=== PATIENT | female | born 1970 | race Caucasian/White ===

== ENCOUNTER 2020-08-23 13:47 | Emergency (ER) | payer BC, OTHER ==
[2020-08-23 14:10] VITALS: BP 145/80; PULSE 77
--- NOTE | 2020-08-23 14:25 | EDM.PDOC ---
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 PT STATES LEFT ANTERIOR RIB CAGE IS TENDER TO TOUCH. PT STATES SHE HAS BEEN TAKING IBUPROFEN FOR PAIN RELIEF BUT LAST NIGHT AFTER WORK SHE SNEEZED AND PAIN BECAME WORSE. PT DENIES COUGH/CONGESTION, NO FEVER/CHILLS, NO SHORTNESS OF BREATH. PT REPORTS TOBACCO USE HISTORY BUT DENIES RESPIRATORY COMPLAINTS. Onset Date: 08/22/20 Duration: Day(s): (1) Location: Reports: Chest Quality: Reports: Ache Severity: Moderate Improves with: Reports: Rest Worsens with: Reports: Movement Context: Reports: Activity Associated Symptoms: Reports: Chest Pain. Denies: Cough, cough w sputum, Diaphoresis, Fever/Chills, Nausea/Vomiting, Shortness of Breath left ribs Pain Score (Numeric/FACES): 5 - Related Data Allergies Allergy/AdvReac Type Severity Reaction Status Date / Time oxycodone Allergy Hives Verified 08/23/20 13:54 Home Meds: Home Meds Ibuprofen [Advil] 400 mg PO Q6HR PRN 01/02/20 [History] traMADol [Ultram] 50 mg PO Q4H PRN #15 tab 08/23/20 [Rx] Past Medical History [employer]OR [employer] History: Reports: Dysfunctional Uterine Bleeding, Musculoskeletal History: Reports: RA Other Musculoskeletal History: States she has two bone spurs in neck region - Past Surgical History GI Surgical History: Reports: Appendectomy, Hernia Repair/Other, Other (See Below) Other GI Surgeries/Procedures: x2 hernia repair Female Surgical History: Reports: Section, Hysterectomy Social & Family History - Family History Family Medical History: Noncontributory - Tobacco Use Smoking Status *Q: Current Every Day Smoker Years of Tobacco use: 30 Packs/Tins Daily: 1 - Recreational Drug Use Recreational Drug Use: No - Living Situation & Occupation Living situation: Reports: Occupation: Employed ED ROS GENERAL - Review of Systems Review Of Systems: See Below Constitutional: Reports: No Symptoms HEENT: Reports: No Symptoms Respiratory: Reports: Pleuritic Chest Pain. Denies: Shortness of Breath, Wheezing, Cough, Hemoptysis Cardiovascular: Reports: Chest Pain Endocrine: Reports: No Symptoms GI/Abdominal: Reports: No Symptoms : Reports: No Symptoms Musculoskeletal: Reports: No Symptoms Skin: Reports: No Symptoms Neurological: Reports: No Symptoms Psychiatric: Reports: No Symptoms Hematologic/Lymphatic: Reports: No Symptoms Immunologic: Reports: No Symptoms ED EXAM, GENERAL - Physical Exam Exam: See Below Exam Limited By: No Limitations General Appearance: Alert, WD/WN, No Apparent Distress Head: Atraumatic, Normocephalic Neck: Normal Inspection, Supple, Non-Tender, Full Range of Motion Respiratory/Chest: No Respiratory Distress, Lungs Clear, Normal Breath Sounds, No Accessory Muscle Use. No: Rales, Rhonchi, Wheezing, Retractions, Splinting Cardiovascular: Normal Peripheral Pulses, Regular Rate, Rhythm, No Edema, No Gallop, No JVD, No Murmur, No Rub GI/Abdominal: Normal Bowel Sounds, Soft, Non-Tender, No Organomegaly, No Distention, No Abnormal Bruit, No Mass Back Exam: Normal Inspection, Full Range of Motion, NT Extremities: Normal Inspection, Normal Range of Motion, Non-Tender, Normal Capillary Refill, No Pedal Edema Neurological: Alert, Oriented, CN II-XII Intact, Normal Cognition, Normal Gait, Normal Reflexes, No Motor/Sensory Deficits Psychiatric: Normal Affect, Normal Mood Skin Exam: Warm, Dry, Intact, Normal Color, No Rash Lymphatic: No Adenopathy Course - Vital Signs Last Recorded V/S: Last Vital Signs Temp 36.5 C 08/23/20 13:50 Pulse 77 08/23/20 13:50 Resp 14 08/23/20 13:50 BP 145/80 H 08/23/20 13:50 Pulse Ox 96 08/23/20 13:50 - Orders/Labs/Meds Orders: Active Orders 24 hr Category Date Time Status Chest 2V [CR] Stat Exams 08/23/20 13:59 Ordered Ribs 2V wo Chest Lt [CR] Stat Exams 08/23/20 13:59 Ordered Departure - Departure Time of Disposition: 14:47 Disposition: Home, Self-Care 01 Condition: Good Clinical Impression: Intercostal muscle strain Qualifiers: Encounter type: initial encounter Qualified Code(s): S29.011A - Strain of muscle and tendon of front wall of thorax, initial encounter - Discharge Information Prescriptions: traMADol [Ultram] 50 mg PO Q4H PRN #15 tab PRN Reason: Pain Instructions: Chest Wall Pain, [id number] Referrals: Evelyn Albright MD [Primary Care Provider] - Forms: ED Department Discharge, ED Return to Work/School Form Additional Instructions: 1. DISCHARGE HOME 2. ULTRAM 50MG #15 EVERY 4-6 HOURS FOR PAIN 3. CONTINUE IBUPROFEN 600MG EVERY 6 HOURS X 5 DAYS 4. HEAT TO CHEST WALL 5. FOLLOW UP WITH PCP FOR FURTHER EVALUATION AND TREATMENT 6. NO WORK X 2 DAYS 7. RETURN TO ER FOR WORSENING SYMPTOMS Sepsis Event Note (ED) - Evaluation Sepsis Screening Result: No Definite Risk - Focused Exam Vital Signs: Vital Signs Temp Pulse Resp BP Pulse Ox 08/23/20 13:50 36.5 C 77 14 145/80 H 96 - My Orders Last 24 Hours: My Active Orders 08/23/20 13:59 Chest 2V [CR] Stat Ribs 2V wo Chest Lt [CR] Stat - Assessment/Plan Last 24 Hours: My Active Orders 08/23/20 13:59 Chest 2V [CR] Stat Ribs 2V wo Chest Lt [CR] Stat Assessment:: 1. LEFT ANTERIOR INTERCOSTAL STRAIN Plan: 1. DISCHARGE HOME 2. ULTRAM 50MG #15 EVERY 4-6 HOURS FOR PAIN 3. CONTINUE IBUPROFEN 600MG EVERY 6 HOURS X 5 DAYS 4. HEAT TO CHEST WALL 5. FOLLOW UP WITH PCP FOR FURTHER EVALUATION AND TREATMENT 6. NO WORK X 2 DAYS 7. RETURN TO ER FOR WORSENING SYMPTOMS
--- NOTE | 2020-08-23 14:43 | CR ---
[id number] RAD/RAD Chest PA And Lateral EXAM: RAD Chest PA And Lateral INDICATION: LEFT RIB PAIN AFTER INJURY. COMPARISON: None. DISCUSSION: Cardiomediastinal silhouette is normal in size and contour. Bilateral symmetric lung hyperinflation, nonspecific etiology. No infiltrate, effusion, pneumothorax, or edema. IMPRESSION: Negative examination of the chest. Carlos Manuel Walsh MD 08/23/20 [id number] Thank you for allowing us to participate in the care of your patient.
--- NOTE | 2020-08-23 14:43 | CR ---
[id number] RAD/RAD Ribs Left Exam: RAD Ribs Left Indication:LEFT RIB PAIN AFTER INJURY. Comparison: No prior imaging for comparison. Discussion/Impression: No visible rib fracture. Carlos Manuel Walsh MD 08/23/20 [id number] Thank you for allowing us to participate in the care of your patient.
== END 2020-08-23 14:50 | disposition home or self-care (01) ==
LOC: KA.ED 13:47
DX: S29.011A Strain of muscle and tendon of front wall of thorax, initial encounter (principal); F17.210 Nicotine dependence, cigarettes, uncomplicated; Z88.5 Allergy status to narcotic agent; Z90.49 Acquired absence of other specified parts of digestive tract; Z90.710 Acquired absence of both cervix and uterus; X50.9XXA Other and unspecified overexertion or strenuous movements or postures, initial encounter; Y99.0 Civilian activity done for income or pay
CPT/HCPCS: 71046; 71100-LT; 99283; 99283-25

== ENCOUNTER 2021-02-08 10:31 | Inpatient (IN) | payer BC ==
[2021-02-08] MEDS: Cyclobenzaprine 10 MG Tab PO SCH (21:13)
[2021-02-08] MEDS: atorvaSTATin 40 MG Tab PO SCH (21:13)
[2021-02-08] MEDS: Celecoxib 100 MG Cap PO SCH (21:13)
[2021-02-08] MEDS: traMADol 50 MG Tab PO PRN (21:31)
[2021-02-08] MEDS: Diclofenac Sodium 1% Gel 100 GM Tube TOP SCH (21:41)
[2021-02-09] MEDS: Aspirin 81 MG Tab.EC PO SCH (08:32)
[2021-02-09] MEDS: Celecoxib 100 MG Cap PO SCH ×2 (08:32→21:01)
[2021-02-09] MEDS: Cyclobenzaprine 10 MG Tab PO SCH ×3 (08:32→21:02)
[2021-02-09] MEDS: Clopidogrel 75 MG Tab PO SCH (08:34)
[2021-02-09] MEDS: Diclofenac Sodium 1% Gel 100 GM Tube TOP SCH ×4 (08:35→21:06)
[2021-02-09] MEDS: Bacitracin Oint 30 GM Tube TOP SCH ×2 (11:51→21:05)
--- NOTE | 2021-02-09 20:40 | HP ---
HISTORY OF PRESENT ILLNESS: This is a 50-year-old female who over the course of the last couple of months had a work-related rib injury on the left side, which initially did not show up on x-ray. She went on to have an MRI which did prove that she had a left rib fracture, however, it also showed an incidental finding of a lung nodule. She went on to have the lung nodule biopsied and it was found to be adenocarcinoma of the lung. She sustained a pneumothorax post biopsy and had to have the left lung reinflated. The patient had a resection of the lung adenocarcinoma, which is stage I, node-negative. Unfortunately, 2 weeks after the resection, she suffered an MCA stroke. This stroke occurred at home on 01/31/2021. She was taken to [facility] in [place] and had TPA as well as a thrombectomy of the middle cerebral artery. She was extubated on 02/01/2021, but had increasing brain edema and was transferred to [facility] in [place]. She does have some residual left upper extremity weakness, but is ambulatory independently and actually walked into this building which is miraculous. She will receive PT during her swing bed stay and is expected to stay 7-10 days. She is taking aspirin and Plavix as well as high-intensity statin therapy. I am very familiar with this patient as I took care of her since her rib injury and was delighted to see how well she was doing after all she has been through. PHYSICAL EXAMINATION: GENERAL: The patient is alert and oriented. She has just a slight left facial droop and just slight left upper extremity weakness. VITAL SIGNS: On exam, temperature is 97.1, pulse is 64, respirations 20, blood pressure 105/65, her oxygen is 95% on room air. SKIN: Warm and dry to touch. CARDIAC: S1, S2 to be normal. Rate and rhythm are regular. No murmur, click, or gallop is auscultated. LUNGS: Clear. ABDOMEN: Soft, nontender. She does have a chest tube site on the left side of her ribs that we had been putting bacitracin on. EXTREMITIES: She has no pedal edema. NEUROLOGIC: From a neurological standpoint, cranial nerves 2 through 12 are intact. She has a slight facial droop on the left and slight weakness of the left upper extremity. Lower extremities have 5/5 strength and are equal bilaterally. IMPRESSION: 1. Status post middle cerebral artery stroke, here for physical therapy. 2. Adenocarcinoma of non-small cell lung cancer, stage I, node-negative and is status post left upper lung lobectomy, stable. 3. Anticoagulation for prophylaxis with Plavix and aspirin. 4. History of tobacco abuse, now committed to quitting. We will follow with this patient during her swing bed stay with a plan to eventually discharge her home to independent living. /[id number]/MODL MTDD
[2021-02-09] MEDS: traMADol 50 MG Tab PO PRN (21:02)
[2021-02-09] MEDS: atorvaSTATin 40 MG Tab PO SCH (21:02)
[2021-02-10] MEDS: Diclofenac Sodium 1% Gel 100 GM Tube TOP SCH ×4 (08:46→21:19)
[2021-02-10] MEDS: Celecoxib 100 MG Cap PO SCH ×2 (08:46→21:18)
[2021-02-10] MEDS: Bacitracin Oint 30 GM Tube TOP SCH ×2 (08:46→21:18)
[2021-02-10] MEDS: Cyclobenzaprine 10 MG Tab PO SCH ×3 (08:46→21:18)
[2021-02-10] MEDS: Aspirin 81 MG Tab.EC PO SCH (08:46)
[2021-02-10] MEDS: Clopidogrel 75 MG Tab PO SCH (08:47)
[2021-02-10] MEDS ORDERED: Albuterol 0.083% 2.5 MG/3 ML Neb Soln NEB SCH (11:00)
[2021-02-10] MEDS: traMADol 50 MG Tab PO PRN (12:40)
[2021-02-10] MEDS: Albuterol 8 GM Inhaler INH SCH ×2 (17:52→21:19)
[2021-02-10] MEDS: atorvaSTATin 40 MG Tab PO SCH (21:18)
[2021-02-11] MEDS: Bacitracin Oint 30 GM Tube TOP SCH ×2 (08:43→20:35)
[2021-02-11] MEDS: Clopidogrel 75 MG Tab PO SCH (08:44)
[2021-02-11] MEDS: Cyclobenzaprine 10 MG Tab PO SCH ×3 (08:44→20:36)
[2021-02-11] MEDS: Celecoxib 100 MG Cap PO SCH ×2 (08:44→20:36)
[2021-02-11] MEDS: Diclofenac Sodium 1% Gel 100 GM Tube TOP SCH ×4 (08:44→20:35)
[2021-02-11] MEDS: Aspirin 81 MG Tab.EC PO SCH (08:44)
[2021-02-11] MEDS: Albuterol 8 GM Inhaler INH SCH ×4 (08:45→20:35)
[2021-02-11] MEDS: atorvaSTATin 40 MG Tab PO SCH (20:36)
[2021-02-12 06:42] VITALS: BP 117/68; PULSE 68
[2021-02-12] MEDS: Celecoxib 100 MG Cap PO SCH (08:39)
[2021-02-12] MEDS: Bacitracin Oint 30 GM Tube TOP SCH (08:40)
[2021-02-12] MEDS: Aspirin 81 MG Tab.EC PO SCH (08:41)
[2021-02-12] MEDS: Cyclobenzaprine 10 MG Tab PO SCH (08:41)
[2021-02-12] MEDS: Clopidogrel 75 MG Tab PO SCH (08:42)
[2021-02-12] MEDS: Diclofenac Sodium 1% Gel 100 GM Tube TOP SCH (08:42)
[2021-02-12] MEDS: Albuterol 8 GM Inhaler INH SCH (08:43)
--- NOTE | 2021-02-13 15:28 | DISCH ---
This is a 50-year-old female who was brought here for swing bed care/physical therapy. Over the course of the last couple of months, the patient had a work- related rib injury on the left side. This initially did not show up on x-ray. She went on to have an MRI which did prove that she had a left rib fracture; however, it showed an incidental finding of a lung nodule in the left upper lobe. She had a lung biopsy, it was found to be adenocarcinoma of the lung, which is stage I and node negative. She sustained a pneumothorax post biopsy and had to have her left lung reinflated. She had a resection of the lung adenocarcinoma. She went home. Unfortunately, two weeks after the resection she suffered an MCA stroke. The stroke occurred at home on 01/31/2021. She was taken to [facility] in [place] and had tPA as well as a thrombectomy of the middle cerebral artery. She was extubated on 02/01/2021, but had increasing brain edema and was transferred to [facility] in [place]. She has some slight left upper extremity weakness. She is ambulatory and actually walked into the building. She has a slight facial droop of the left. She is taking aspirin and Plavix as well as a high-intensity statin. The patient wants to go home. I did consult with Physical Therapy and they are agreeable to this. PHYSICAL EXAMINATION: GENERAL: The patient is alert and oriented. She has just a slight left facial droop and just slight left upper extremity weakness. VITAL SIGNS: Stable. SKIN: Warm and dry to touch. CARDIAC: Reveals S1 and S2 to be normal. Rate and rhythm are regular. No murmur, click, or gallop is auscultated. LUNGS: Do have some coarse sounds that clear with cough. CHEST: She does have an incision from her left upper lobectomy and she also has a chest tube site. Both are healing well. ABDOMEN: Soft and nontender. EXTREMITIES: There is no pedal edema. NEUROLOGIC: Cranial nerves 2-12 are intact. She has a slight facial droop on the left with slight weakness of the left upper extremities. Lower extremities have 5/5 strength and are equal bilaterally. DISCHARGE DIAGNOSIS: 1. Status post middle cerebral artery stroke, here for physical therapy. I did consult with Physical Therapy regarding her discharge today and she is agreeable with this plan. Roxanne will follow up for outpatient physical therapy. She will follow up with me in 7-10 days. 2. Adenocarcinoma of [id number] lung cancer, adenocarcinoma stage I, node- negative and status post left upper lobectomy. This is stable. We did put her on Ventolin inhaler while she was in the hospital, which was beneficial. 3. Anticoagulation for prophylaxis with Plavix and aspirin. 4. History of tobacco abuse now has not smoked in several weeks. /[id number]/MODL
== END 2021-02-12 10:05 | disposition home or self-care (01) | DRG 58 ==
LOC: KA.MS 17:15
PROVIDERS: ADMIT Internal Medicine
DX: I69.334 Monoplegia of upper limb following cerebral infarction affecting left non-dominant side (principal); I69.392 Facial weakness following cerebral infarction; C34.12 Malignant neoplasm of upper lobe, left bronchus or lung; Z79.01 Long term (current) use of anticoagulants; Z87.891 Personal history of nicotine dependence; Z20.822 Contact with and (suspected) exposure to COVID-19
CPT/HCPCS: 97110-GP; 97161-GP; A9270-GY; U0002

== ENCOUNTER 2023-06-09 14:05 | Emergency (ER) | payer BC ==
[2023-06-09] MEDS ORDERED: Sodium Chloride 0.9% 10 ML Syringe FLUSH PRN (14:30)
[2023-06-09] MEDS ORDERED: Lidocaine/Prilocaine 2.5-2.5% Crm 30 GM Tube TOP ONE (14:35)
[2023-06-09] MEDS ORDERED: Enalaprilat 1.25 MG/ML SDV IVPUSH ONE (14:43)
[2023-06-09 15:02] LABS: BASOPHILS ABSOLUTE AUTO 0.04 10^3/uL (0.00-0.10); BASOPHILS PERCENT AUTO 0.4 % (0.0-1.0); EOSINOPHILS ABSOLUTE AUTO 0.03 10^3/uL (0.10-0.30); EOSINOPHILS PERCENT AUTO 0.3 % (1.0-3.0); HEMATOCRIT 32.1 % (37.0-47.0); HEMOGLOBIN 10.3 g/dL (12.0-16.0); IMMATURE GRAN ABSOLUTE AUTO 0.06 10^3/uL (0.00-0.50); IMMATURE GRAN PERCENT AUTO 0.6 % (0.0-5.0); LYMPHOCYTES ABSOLUTE AUTO 2.06 10^3/uL (1.00-4.00); LYMPHOCYTES PERCENT AUTO 20.5 % (20.0-40.0); MEAN CORPUSCULAR HEMOGLOBIN 30.7 pg (27.0-31.0); MEAN CORPUSCULAR HGB CONC 32.1 g/dL (32.0-36.0); MEAN CORPUSCULAR VOLUME 95.5 fL (82.0-92.0); MEAN PLATELET VOLUME 8.4 fL (7.4-10.4); MONOCYTES ABSOLUTE AUTO 0.77 10^3/uL (0.10-0.80); MONOCYTES PERCENT AUTO 7.7 % (2.0-8.0); NEUTROPHILS PERCENT AUTO 70.5 % (50.0-70.0); PLATELET COUNT,PLT 364 10^3/uL (150-400); RED BLOOD CELL COUNT 3.36 10^6/uL (3.80-5.50); RED CELL DISTRIBUTION WIDTH 15.6 % (11.5-14.5); WHITE BLOOD CELL COUNT,WBC 10.06 10^3/uL (5.00-10.00)
[2023-06-09 15:19] LABS: ANION GAP 14.2 mmol/L (5-15); BLOOD UREA NITROGEN,BUN 11 mg/dL (7-18); CALCIUM 8.8 mg/dL (8.7-10.3); CARBON DIOXIDE,CO2 27.2 mmol/L (21.0-32.0); CHLORIDE,CL 93 mmol/L (98-107); CREATININE 0.74 mg/dL (0.51-1.17); ESTIMATED GFR 97 mL/min (>=60); GLUCOSE RANDOM 89 mg/dL (70-140); POTASSIUM,K 4.4 mmol/L (3.5-5.1); SODIUM,NA 130 mmol/L (136-145)
[2023-06-09 16:37] VITALS: BP 138/82; PULSE 82
== END 2023-06-09 16:00 | disposition home or self-care (01) ==
LOC: KA.ED 14:05
DX: I10 Essential (primary) hypertension (principal); Z86.73 Personal history of transient ischemic attack (TIA), and cerebral infarction without residual deficits; Z79.82 Long term (current) use of aspirin; Z79.899 Other long term (current) drug therapy
CPT/HCPCS: 36556; 70450; 80048; 84484; 85025; 93005; 93010; 96374; 99284; 99284-25; A9270-GY; J1642; J3490

== ENCOUNTER 2023-06-11 10:38 | Emergency (ER) | payer BC ==
[2023-06-11 11:13] LABS: BASOPHILS ABSOLUTE AUTO 0.03 10^3/uL (0.00-0.10); BASOPHILS PERCENT AUTO 0.3 % (0.0-1.0); EOSINOPHILS ABSOLUTE AUTO 0.03 10^3/uL (0.10-0.30); EOSINOPHILS PERCENT AUTO 0.3 % (1.0-3.0); HEMOGLOBIN 10.8 g/dL (12.0-16.0); IMMATURE GRAN ABSOLUTE AUTO 0.11 10^3/uL (0.00-0.50); IMMATURE GRAN PERCENT AUTO 0.9 % (0.0-5.0); LYMPHOCYTES ABSOLUTE AUTO 2.02 10^3/uL (1.00-4.00); MEAN CORPUSCULAR HEMOGLOBIN 30.9 pg (27.0-31.0); MEAN CORPUSCULAR HGB CONC 32.7 g/dL (32.0-36.0); MEAN CORPUSCULAR VOLUME 94.6 fL (82.0-92.0); MEAN PLATELET VOLUME 8.3 fL (7.4-10.4); MONOCYTES ABSOLUTE AUTO 0.92 10^3/uL (0.10-0.80); MONOCYTES PERCENT AUTO 7.7 % (2.0-8.0); NEUTROPHILS ABSOLUTE AUTO 8.78 10^3/uL (2.50-7.00); NEUTROPHILS PERCENT AUTO 73.8 % (50.0-70.0); PLATELET COUNT,PLT 333 10^3/uL (150-400); RED BLOOD CELL COUNT 3.49 10^6/uL (3.80-5.50); RED CELL DISTRIBUTION WIDTH 15.5 % (11.5-14.5); WHITE BLOOD CELL COUNT,WBC 11.89 10^3/uL (5.00-10.00)
[2023-06-11 11:27] LABS: CALCIUM 9.1 mg/dL (8.7-10.3); CARBON DIOXIDE,CO2 26.3 mmol/L (21.0-32.0); CREATININE 0.95 mg/dL (0.51-1.17); EST CRCL DRUG DOSING (CG) 56.55 mL/min; POTASSIUM,K 5.3 mmol/L (3.5-5.1)
[2023-06-11] MEDS: Ketorolac 30 MG/ML SDV IM ONE (11:48)
[2023-06-11 11:58] VITALS: BP 131/84; PULSE 81
== END 2023-06-11 12:05 | disposition home or self-care (01) ==
LOC: KA.ED 10:38
DX: I10 Essential (primary) hypertension (principal); M06.9 Rheumatoid arthritis, unspecified; Z98.890 Other specified postprocedural states; Z79.82 Long term (current) use of aspirin; Z79.899 Other long term (current) drug therapy; Z91.041 Radiographic dye allergy status; Z88.5 Allergy status to narcotic agent
CPT/HCPCS: 36415; 80048; 85025; 93005; 93010; 96372; 99284; J1885

== ENCOUNTER 2023-07-08 09:22 | Emergency (ER) | payer BC ==
[2023-07-08 09:28] VITALS: BP 116/61; PULSE 93
[2023-07-08] MEDS ORDERED: Sodium Chloride 0.9% 10 ML Syringe FLUSH PRN (09:36)
[2023-07-08 09:52] LABS: BASOPHILS ABSOLUTE AUTO 0.02 10^3/uL (0.00-0.10); BASOPHILS PERCENT AUTO 0.2 % (0.0-1.0); EOSINOPHILS ABSOLUTE AUTO 0.13 10^3/uL (0.10-0.30); EOSINOPHILS PERCENT AUTO 1.4 % (1.0-3.0); HEMATOCRIT 33.1 % (37.0-47.0); HEMOGLOBIN 10.6 g/dL (12.0-16.0); IMMATURE GRAN ABSOLUTE AUTO 0.02 10^3/uL (0.00-0.50); IMMATURE GRAN PERCENT AUTO 0.2 % (0.0-5.0); LYMPHOCYTES ABSOLUTE AUTO 1.26 10^3/uL (1.00-4.00); LYMPHOCYTES PERCENT AUTO 13.5 % (20.0-40.0); MEAN CORPUSCULAR HEMOGLOBIN 30.8 pg (27.0-31.0); MEAN CORPUSCULAR VOLUME 96.2 fL (82.0-92.0); MEAN PLATELET VOLUME 8.5 fL (7.4-10.4); MONOCYTES ABSOLUTE AUTO 0.58 10^3/uL (0.10-0.80); MONOCYTES PERCENT AUTO 6.2 % (2.0-8.0); NEUTROPHILS ABSOLUTE AUTO 7.35 10^3/uL (2.50-7.00); NEUTROPHILS PERCENT AUTO 78.5 % (50.0-70.0); PLATELET COUNT,PLT 418 10^3/uL (150-400); RED BLOOD CELL COUNT 3.44 10^6/uL (3.80-5.50); WHITE BLOOD CELL COUNT,WBC 9.36 10^3/uL (5.00-10.00)
[2023-07-08 10:11] LABS: ALBUMIN 3.23 g/dL (3.40-5.00); ANION GAP 14.5 mmol/L (5-15); BILIRUBIN TOTAL 0.2 mg/dL (0.2-1.0); CALCIUM 8.9 mg/dL (8.7-10.3); CARBON DIOXIDE,CO2 27.1 mmol/L (21.0-32.0); CREATININE 0.98 mg/dL (0.51-1.17); EST CRCL DRUG DOSING (CG) 55.78 mL/min; POTASSIUM,K 4.6 mmol/L (3.5-5.1); PROTEIN TOTAL,TP 7.8 g/dL (6.4-8.2)
== END 2023-07-08 10:47 | disposition home or self-care (01) ==
LOC: KA.ED 09:22
DX: R42 Dizziness and giddiness (principal); R55 Syncope and collapse; T46.5X5A Adverse effect of other antihypertensive drugs, initial encounter; J90 Pleural effusion, not elsewhere classified; Z91.041 Radiographic dye allergy status; Z88.5 Allergy status to narcotic agent; Z79.82 Long term (current) use of aspirin; Z79.02 Long term (current) use of antithrombotics/antiplatelets; Z86.73 Personal history of transient ischemic attack (TIA), and cerebral infarction without residual deficits
CPT/HCPCS: 36415; 71045; 80053; 84484; 85025; 93010; 99284

== ENCOUNTER 2024-03-31 00:45 | Inpatient (IN) | payer BC ==
[2024-03-31] MEDS: Sodium Chloride 0.9% 10 ML Syringe FLUSH SCH (01:25)
[2024-03-31] MEDS: Ondansetron 4 MG/2 ML SDV IVPUSH ONE (01:32)
[2024-03-31] MEDS: HYDROmorphone 1 MG/ML Syringe IVPUSH ONE ×2 (01:38→03:15)
[2024-03-31 01:57] LABS: BASOPHILS ABSOLUTE AUTO 0.02 10^3/uL (0.00-0.10); BASOPHILS PERCENT AUTO 0.2 % (0.0-1.0); EOSINOPHILS ABSOLUTE AUTO 0.13 10^3/uL (0.10-0.30); EOSINOPHILS PERCENT AUTO 1.1 % (1.0-3.0); HEMATOCRIT 34.4 % (37.0-47.0); HEMOGLOBIN 10.8 g/dL (12.0-16.0); IMMATURE GRAN ABSOLUTE AUTO 0.05 10^3/uL (0.00-0.50); IMMATURE GRAN PERCENT AUTO 0.4 % (0.0-5.0); LYMPHOCYTES ABSOLUTE AUTO 1.76 10^3/uL (1.00-4.00); LYMPHOCYTES PERCENT AUTO 15.2 % (20.0-40.0); MEAN CORPUSCULAR HEMOGLOBIN 28.5 pg (27.0-31.0); MEAN CORPUSCULAR HGB CONC 31.4 g/dL (32.0-36.0); MEAN CORPUSCULAR VOLUME 90.8 fL (82.0-92.0); MEAN PLATELET VOLUME 9.2 fL (7.4-10.4); MONOCYTES ABSOLUTE AUTO 0.53 10^3/uL (0.10-0.80); MONOCYTES PERCENT AUTO 4.6 % (2.0-8.0); NEUTROPHILS ABSOLUTE AUTO 9.08 10^3/uL (2.50-7.00); NEUTROPHILS PERCENT AUTO 78.5 % (50.0-70.0); PLATELET COUNT,PLT 407 10^3/uL (150-400); RED BLOOD CELL COUNT 3.79 10^6/uL (3.80-5.50); RED CELL DISTRIBUTION WIDTH 23.8 % (11.5-14.5); WHITE BLOOD CELL COUNT,WBC 11.57 10^3/uL (5.00-10.00)
[2024-03-31 02:14] LABS: ALANINE AMINOTRANSFERASE,ALT 21 U/L (14-63); ALBUMIN 2.73 g/dL (3.40-5.00); ALKALINE PHOSPHATASE 86 U/L (46-116); ANION GAP 9.2 mmol/L (5-15); ASPARTATE AMNIOTRANSFERASE,AST 18 U/L (15-37); BILIRUBIN TOTAL 0.2 mg/dL (0.2-1.0); BLOOD UREA NITROGEN,BUN 20 mg/dL (7-18); CALCIUM 8.9 mg/dL (8.7-10.3); CARBON DIOXIDE,CO2 32.3 mmol/L (21.0-32.0); CHLORIDE,CL 99 mmol/L (98-107); CREATININE 0.96 mg/dL (0.51-1.17); GLUCOSE RANDOM 101 mg/dL (70-140); POTASSIUM,K 3.5 mmol/L (3.5-5.1); PROTEIN TOTAL,TP 6.6 g/dL (6.4-8.2); SODIUM,NA 137 mmol/L (136-145)
[2024-03-31 02:15] LABS: ESTIMATED GFR 71 mL/min (>=60)
[2024-03-31] MEDS: Ketorolac 30 MG/ML SDV IVPUSH ONE (03:20)
[2024-03-31] MEDS ORDERED: HYDROmorphone 1 MG/ML Syringe IVPUSH PRN (06:15)
[2024-03-31] MEDS ORDERED: Temazepam 15 MG Cap PO PRN (06:19)
[2024-03-31] MEDS ORDERED: Docusate Sodium 100 MG Cap PO PRN (06:19)
[2024-03-31 06:39] VITALS: BP 111/66; PULSE 62
[2024-03-31] MEDS: Morphine 30 MG Tab.ER PO SCH (07:32)
[2024-03-31] MEDS: Aspirin 81 MG Tab.EC PO SCH (08:18)
[2024-03-31] MEDS: Morphine 15 MG Tab.ER PO SCH (08:18)
[2024-03-31] MEDS: Clopidogrel 75 MG Tab PO SCH (08:18)
[2024-03-31] MEDS: predniSONE 20 MG Tab PO SCH (08:18)
[2024-03-31] MEDS: Enoxaparin 40 MG/0.4 ML Syringe SUBCUT SCH (08:19)
[2024-03-31] MEDS: Sodium Chloride 0.9% 20 ML SDV FLUSH SCH (10:40)
== END 2024-03-31 11:16 | disposition home or self-care (01) | DRG 136 ==
LOC: KA.ED 00:45 → KA.MS 03:35
PROVIDERS: ADMIT Physician Assistant Surgical; ATTEND Family Medicine
DX: C34.90 Malignant neoplasm of unspecified part of unspecified bronchus or lung (principal); C79.81 Secondary malignant neoplasm of breast; J91.0 Malignant pleural effusion; M06.9 Rheumatoid arthritis, unspecified; I10 Essential (primary) hypertension; F17.210 Nicotine dependence, cigarettes, uncomplicated; G89.3 Neoplasm related pain (acute) (chronic); Z96.89 Presence of other specified functional implants; R10.9 Unspecified abdominal pain; R91.8 Other nonspecific abnormal finding of lung field; Z88.5 Allergy status to narcotic agent; Z91.041 Radiographic dye allergy status; Z79.82 Long term (current) use of aspirin; Z79.899 Other long term (current) drug therapy; Z90.2 Acquired absence of lung [part of]; Z79.02 Long term (current) use of antithrombotics/antiplatelets; Z79.51 Long term (current) use of inhaled steroids; Z86.73 Personal history of transient ischemic attack (TIA), and cerebral infarction without residual deficits; Z90.49 Acquired absence of other specified parts of digestive tract; Z98.890 Other specified postprocedural states; Z90.710 Acquired absence of both cervix and uterus; Z90.12 Acquired absence of left breast and nipple
CPT/HCPCS: 36556; 71250; 80053; 85025; 85379; 96374; 96375; 99236-GT; 99284-25; A9270-GY; J1170; J1642; J1885; J2405; J3490; J7512; Q3014

== ENCOUNTER 2024-05-14 15:34 | Emergency (ER) | payer BC ==
[2024-05-14] MEDS: HYDROmorphone 1 MG/ML Syringe IVPUSH ONE ×2 (16:16→18:43)
[2024-05-14 16:24] LABS: HEMATOCRIT 34.1 % (37.0-47.0); HEMOGLOBIN 10.5 g/dL (12.0-16.0); IMMATURE GRAN ABSOLUTE AUTO 0.25 10^3/uL (0.00-0.50); IMMATURE GRAN PERCENT AUTO 1.5 % (0.0-5.0); LYMPHOCYTES ABSOLUTE AUTO 0.58 10^3/uL (1.00-4.00); LYMPHOCYTES PERCENT AUTO 3.4 % (20.0-40.0); MEAN CORPUSCULAR HGB CONC 30.8 g/dL (32.0-36.0); MEAN CORPUSCULAR VOLUME 94.2 fL (82.0-92.0); MEAN PLATELET VOLUME 8.7 fL (7.4-10.4); MONOCYTES ABSOLUTE AUTO 1.36 10^3/uL (0.10-0.80); NEUTROPHILS ABSOLUTE AUTO 14.79 10^3/uL (2.50-7.00); NEUTROPHILS PERCENT AUTO 87.1 % (50.0-70.0); PLATELET COUNT,PLT 720 10^3/uL (150-400); RED BLOOD CELL COUNT 3.62 10^6/uL (3.80-5.50); RED CELL DISTRIBUTION WIDTH 21.5 % (11.5-14.5); WHITE BLOOD CELL COUNT,WBC 16.98 10^3/uL (5.00-10.00)
[2024-05-14] MEDS: Ketorolac 30 MG/ML SDV IVPUSH ONE (16:27)
[2024-05-14 16:42] LABS: ALBUMIN 2.17 g/dL (3.40-5.00); ANION GAP 11.2 mmol/L (5-15); BILIRUBIN TOTAL 0.2 mg/dL (0.2-1.0); CALCIUM 8.7 mg/dL (8.7-10.3); CARBON DIOXIDE,CO2 32.1 mmol/L (21.0-32.0); CREATININE 0.76 mg/dL (0.51-1.17); EST CRCL DRUG DOSING (CG) 60.69 mL/min; POTASSIUM,K 4.3 mmol/L (3.5-5.1); PROTEIN TOTAL,TP 5.9 g/dL (6.4-8.2)
[2024-05-14] MEDS: Albuterol/Ipratropium 3.0-0.5 MG/3 ML Neb Soln NEB ONE (16:46)
[2024-05-14] MEDS: diphenhydrAMINE 50 MG/ML SDV IVPUSH ONE (17:11)
[2024-05-14] MEDS: Famotidine 20 MG Tab PO ONE (17:11)
[2024-05-14] MEDS: methylPREDNISolone Sodium Succinate 125 MG/2 ML SDV IVPUSH ONE (17:15)
[2024-05-14] MEDS: Iopamidol 755 Mg/ML 100 ML Bottle IV ONE (18:33)
[2024-05-14] MEDS: Sodium Chloride 0.9% 100 ML IV SCH (18:33)
[2024-05-14] MEDS: Ondansetron 4 MG/2 ML SDV IVPUSH ONE (18:35)
[2024-05-14 19:50] LABS: BILIRUBIN,URINE NEGATIVE (NEGATIVE); COLOR,URINE YELLOW (YELLOW); GLUCOSE,URINE NEGATIVE (NEGATIVE); KETONES,URINE TRACE mg/dL (NEGATIVE); LEUKOCYTE ESTERASE,URINE NEGATIVE (NEGATIVE); NITRITE,URINE POSITIVE (NEGATIVE); OCCULT BLOOD,URINE NEGATIVE (NEGATIVE); PH,URINE 5.5 (5.0-9.0); PROTEIN,URINE TRACE mg/dL (NEGATIVE); UROBILINOGEN,URINE 0.2 E.U./dL (0.2-1.0)
[2024-05-14 19:56] LABS: APPEARANCE,URINE SLIGHTLY CLOUDY (CLEAR)
[2024-05-14 19:57] LABS: BACTERIA,URINE FEW /HPF (NONE TO FEW); EPITHELIAL CELLS,URINE FEW /LPF; MUCUS,URINE FEW /LPF (NEGATIVE); RBC,URINE 0-5 /HPF (0-5); WBC,URINE 0-5 /HPF (0-5)
[2024-05-14] MEDS: cefTRIAXone 1 GM Vial IVPUSH ONE (20:17)
[2024-05-14] MEDS: Sodium Chloride 0.9% 10 ML Syringe FLUSH PRN (20:25)
[2024-05-14] MEDS: metroNIDAZOLE/Normal Saline 500 MG in Premix Bag 1 BAG IV ONE (20:27)
[2024-05-14] MEDS ORDERED: Ondansetron 4 MG/2 ML SDV IVPUSH PRN (21:10)
[2024-05-14] MEDS: Sodium Chloride 0.9% 50 ML IV SCH (21:20)
[2024-05-14] MEDS: HYDROmorphone 1 MG/ML Syringe IVPUSH PRN (22:21)
[2024-05-15 07:55] VITALS: BP 139/81; PULSE 85
[2024-05-15] MEDS: Aspirin 81 MG Tab.Chew PO SCH (07:58)
[2024-05-15] MEDS: Clopidogrel 75 MG Tab PO ONE (07:58)
== END 2024-05-15 08:15 ==
LOC: KA.ED 15:34
DX: J86.9 Pyothorax without fistula (principal); N39.0 Urinary tract infection, site not specified; R79.82 Elevated C-reactive protein (CRP); D72.828 Other elevated white blood cell count; I10 Essential (primary) hypertension; Z86.73 Personal history of transient ischemic attack (TIA), and cerebral infarction without residual deficits; Z79.01 Long term (current) use of anticoagulants; Z79.82 Long term (current) use of aspirin; Z79.899 Other long term (current) drug therapy; Z88.5 Allergy status to narcotic agent; Z91.041 Radiographic dye allergy status
CPT/HCPCS: 36415; 71046; 71275; 80053; 81001; 83605; 85025; 85379; 86140; 87040; 87086; 87088; 87186; 94640; 96365; 96366; 96367; 96375; 96376; 99284; 99285-25; A9270-GY; J0696; J1170; J1200; J1836; J1885; J2405; J2919; J3370; J3490; J7050; J7620-GY; Q3014; Q9967

== ENCOUNTER 2024-06-10 14:18 | Emergency (ER) | payer BC ==
[2024-06-10] MEDS: HYDROmorphone 1 MG/ML Syringe IVPUSH ONE ×2 (14:30→16:15)
[2024-06-10] MEDS: Ketorolac 30 MG/ML SDV IVPUSH ONE (14:36)
[2024-06-10 15:00] VITALS: BP 182/117; PULSE 112
[2024-06-10] MEDS: HYDROmorphone 1 MG/ML Syringe ONE (15:02)
[2024-06-10] MEDS: Ketorolac 30 MG/ML SDV ONE (15:02)
[2024-06-10] MEDS: Albuterol/Ipratropium 3.0-0.5 MG/3 ML Neb Soln NEB ONE (15:20)
[2024-06-10] MEDS ORDERED: Naloxone 0.4 MG/ML SDV IVPUSH PRN (16:10)
== END 2024-06-10 16:26 | disposition home or self-care (01) ==
LOC: KA.ED 14:18
DX: C34.90 Malignant neoplasm of unspecified part of unspecified bronchus or lung (principal); J91.0 Malignant pleural effusion; G89.3 Neoplasm related pain (acute) (chronic); I10 Essential (primary) hypertension; Z90.49 Acquired absence of other specified parts of digestive tract; Z90.710 Acquired absence of both cervix and uterus; Z86.16 Personal history of COVID-19; Z79.899 Other long term (current) drug therapy; Z79.52 Long term (current) use of systemic steroids; Z79.82 Long term (current) use of aspirin; Z88.0 Allergy status to penicillin; Z91.041 Radiographic dye allergy status; Z88.5 Allergy status to narcotic agent
CPT/HCPCS: 94640; 96374; 96375; 96376; 99283; A6212; J1170; J1885; 99284; J7620-GY